=== PATIENT | male | born 1950 | race Two or more races ===

== ENCOUNTER 2020-12-19 14:41 | Inpatient (IN) | payer OTHER ==
[~2020-12-19] VITALS: Ht 170.2 cm; Wt 81.6 kg
== END 2020-12-26 09:09 | disposition home or self-care (01) | DRG 177 ==
LOC: ER 14:41 → MEDJ 12-20 00:07
PROVIDERS: ADMIT Internal Medicine; ATTEND Internal Medicine
PROC: 4A033R1 Measurement of Arterial Saturation, Peripheral, Percutaneous Approach (ICD-10-PCS; principal; 2020-12-20)
PROC: 8E0ZXY6 Isolation (ICD-10-PCS; 2020-12-20)
PROC: 3E0F7SF Introduction of Other Gas into Respiratory Tract, Via Natural or Artificial Opening (ICD-10-PCS; 2020-12-20)
PROC: XW033E5 Introduction of Remdesivir Anti-infective into Peripheral Vein, Percutaneous Approach, New Technology Group 5 (ICD-10-PCS; 2020-12-21)
DX: U07.1 COVID-19 (principal); J12.82 Pneumonia due to coronavirus disease 2019; K85.90 Acute pancreatitis without necrosis or infection, unspecified; R09.02 Hypoxemia; Z20.822 Contact with and (suspected) exposure to COVID-19; K80.20 Calculus of gallbladder without cholecystitis without obstruction

== ENCOUNTER → 2022-02-25 | Emergency (ER) | payer OTHER ==
[~2022-02-25] VITALS: Ht 170.2 cm; Wt 78.5 kg
== END | disposition home or self-care (01) ==
LOC: ER 07:27
DX: M54.50 Low back pain, unspecified (principal); Z88.6 Allergy status to analgesic agent

== ENCOUNTER 2022-09-19 09:36 | Emergency (ER) | payer OTHER ==
[~2022-09-19] VITALS: Ht 170.2 cm; Wt 75.3 kg
== END 2022-09-19 13:02 | disposition home or self-care (01) ==
LOC: ER 09:36
DX: M94.0 Chondrocostal junction syndrome [Tietze] (principal); Z88.6 Allergy status to analgesic agent

== ENCOUNTER 2023-07-14 09:33 | Emergency (ER) | payer OTHER ==
[~2023-07-14] VITALS: Ht 170.2 cm; Wt 71.2 kg
[2023-07-14 13:03] LABS: HEMATOCRIT 39.2 % (39.0-48.0); MEAN CELL VOLUME 96.5 fL (80.0-100.00); MEAN CORPUSCULAR HEMOGLOBIN 32.1 pg (27.00-32.0); MEAN CORPUSCULAR HGB CONC 33.2 g/dl (32.0-36.0); PLATELET COUNT 243 K/uL (150-450); RED BLOOD COUNT 4.06 M/uL (4.00-6.00)
[2023-07-14 13:41] LABS: ALBUMIN 3.4 gm/dL (3.4-5.0); BILIRUBIN TOTAL 0.64 mg/dL (0.3-1.2); CALCIUM 8.8 mg/dL (8.5-10.1); CREATININE SERUM 0.93 mg/dL (0.70-1.30); GFR 80.09; GLOBULINA 4.5 G/DL (2.4-3.5); POTASSIUM 3.65 mEq/L (3.5-5.1); TOTAL PROTEIN 7.9 gm/dL (6.4-8.2)
[2023-07-14 14:44] LABS: URINE APPEARANCE Clear; URINE BILIRRUBIN Negative (NEGATIVE); URINE BLOOD Negative; URINE COLOR Yellow; URINE GLUCOSE Negative (NEGATIVE); URINE LEUKOCYTE Trace; URINE NITRATE Negative; URINE PROTEIN Trace (NEGATIVE); URINE UROBILINOGEN 0.2 E.U./dl
[2023-07-14 14:47] LABS: URINE BACTERIA 6.2 uL (0.0-1933); URINE RBC 8.1 uL (0.0-20.8); URINE WBC 3.8 uL (0.0-23.2)
== END 2023-07-14 16:55 | disposition home or self-care (01) ==
LOC: ER 09:33
PROVIDERS: Emergency Medicine
DX: K52.9 Noninfective gastroenteritis and colitis, unspecified (principal); A08.8 Other specified intestinal infections; I10 Essential (primary) hypertension; Z88.6 Allergy status to analgesic agent
CPT/HCPCS: 36415; 96365; 96366; 99282; J7030